=== PATIENT | male | born 1995 | race Asian ===

== ENCOUNTER 2017-07-03 11:20 | Emergency (ER) | payer OTHER ==
[2017-07-03 12:38] VITALS: BP 131/59
--- NOTE | 2017-07-05 11:03 | ED ---
Fletcher Michaels Stephanie, scribed for Efrem Raymond MD on 07/03/17 at 1206 . Abdominal Pain/Male - HPI Summary HPI Summary: The pt is a 21 y/o M presenting to the ED with c/o abd pain that began on . The pt reports the abd pain begins when he gets hungry and resolves after eating. He denies V/D and fever. The pt denies current abd pain. - History of Current Complaint Chief Complaint: EDAbdPain Stated Complaint: ABD PAIN Time Seen by Provider: 07/03/17 11:44 Hx Obtained From: Patient Onset/Duration: Gradual Onset, Lasting Weeks - 4, Still Present - before eating meals Timing: Intermittent Severity Currently: None Pain Intensity: 1 Pain Scale Used: 0-10 Numeric Location: Diffuse Radiates: No Aggravating Factor(s): Other: - hunger Alleviating Factor(s): Other: - foods Associated Signs And Symptoms: Negative: Vomiting, Diarrhea PMH/Surg Hx/FS Hx/Imm Hx Previously Healthy: Yes - The pt denies past medical hx. Sensory History: Denies: Hx Legally Blind EENT History: Denies: Hx Deafness - Surgical History Surgery Procedure, Year, and Place: None Infectious Disease History: No Infectious Disease History: Denies: Traveled Outside the [place] in Last 30 Days - Family History Known Family History: Positive: Other - stomach cancer - Social History Occupation: Student Lives: Dormitory/Roommates Alcohol Use: Rare Hx Substance Use: No Review of Systems Negative: Fever, Chills Negative: Erythema Negative: Sore Throat Negative: Chest Pain Negative: Shortness Of Breath, Cough Positive: Abdominal Pain. Negative: Vomiting, Diarrhea, Nausea Negative: dysuria, hematuria Negative: Myalgia, Edema Negative: Rash Psychological: Other - Negative: dizziness All Other Systems Reviewed And Are Negative: Yes Physical Exam - Summary Physical Exam Summary: Constitutional: Well-developed, Well-nourished, Alert. (-) Distressed Skin: Warm, Dry HENT: Normocephalic; Atraumatic Eyes: Conjunctiva normal Neck: Musculoskeletal ROM normal neck. (-) JVD, (-) Stridor, (-) Tracheal deviation Cardio: Rhythm regular, rate normal, Heart sounds normal; Intact distal pulses; The pedal pulses are 2+ and symmetric. Radial pulses are 2+ and symmetric. (-) Murmur Pulmonary/Chest wall: Effort normal. (-) Respiratory distress, (-) Wheezes, (-) Rales Abd: Soft, (-) Tenderness, (-) Distension, (-) Guarding, (-) Rebound Musculoskeletal: (-) Edema Lymph: (-) Cervical adenopathy Neuro: Alert, Oriented x3 Psych: Mood and affect Normal Triage Information Reviewed: Yes Vital Signs On Initial Exam: Initial Vitals Temp Pulse Resp BP Pulse Ox 98.4 F 77 15 137/71 99 07/03/17 11:22 07/03/17 11:22 07/03/17 11:22 07/03/17 11:22 07/03/17 11:22 Vital Signs Reviewed: Yes Diagnostics - Vital Signs Vital Signs Temp Pulse Resp BP Pulse Ox 07/03/17 11:22 98.4 F 77 15 137/71 99 - Laboratory Lab Statement: Any lab studies that have been ordered have been reviewed, and results considered in the medical decision making process. Abdominal Pain Fem Course/Dx - Course Course Of Treatment: The pt is a 21 y/o M presenting to the ED with abd pain. The pt will be discharged home and is advised to follow up with [facility] in 3-5 days. - Diagnoses Provider Diagnoses: Abdominal pain Discharge - Discharge Plan Condition: Stable Disposition: HOME Prescriptions: Omeprazole CAP* [Prilosec CAP* 20 MG] 20 mg PO DAILY #14 cap. Patient Education Materials: Abdominal Pain (ED) Referrals: [facility] - Luis AREVALO [Primary Care Provider] - 3 Days Additional Instructions: RETURN TO THE EMERGENCY DEPARTMENT FOR CHANGING OR WORSENING SYMPTOMS The documentation as recorded by the Fletcher galan Stephanie accurately reflects the service I personally performed and the decisions made by , Efrem Raymond MD.
== END 2017-07-03 12:10 | disposition home or self-care (01) ==
LOC: ED 11:20
DX: R10.9 Unspecified abdominal pain (principal)
CPT/HCPCS: 99282

== ENCOUNTER 2017-07-04 21:41 | Emergency (ER) | payer OTHER ==
--- NOTE | 2017-07-05 01:07 | ED ---
Influenza-Like Illness - HPI Summary HPI Summary: 21M presents with fever today. He states he is concerned that he flu. He states he took some kind of cold medication and does not have a fever now. He denies any muscle aches. He gets occasional shortness of breath and occasional headache. He denies any nausea or vomiting or diarrhea. He states he has been having abdominal pain for the past month and was recently told that he has GERD. He denies any chest pain or shortness of breath. He is concerned because rest [facility] has the flu. He has no medical conditions. - History of Current Complaint Chief Complaint: EDFluSymptoms Time Seen by Provider: 07/05/17 00:55 - Allergy/Home Medications Allergies/Adverse Reactions: Allergies Allergy/AdvReac Type Severity Reaction Status Date / Time No Known Allergies Allergy Verified 07/04/17 22:08 PMH/Surg Hx/FS Hx/Imm Hx Endocrine/Hematology History: Denies: Hx Anticoagulant Therapy Cardiovascular History: Denies: Hx Hypertension Infectious Disease History: No Infectious Disease History: Denies: Traveled Outside the [place] in Last 30 Days - Family History Known Family History: Negative: Respiratory Disease - Social History Alcohol Use: Rare Substance Use Type: Reports: None Smoking Status (MU): Never Smoked Tobacco Review of Systems Positive: Fever Negative: Chest Pain Positive: Cough. Negative: Shortness Of Breath Negative: Vomiting, Nausea All Other Systems Reviewed And Are Negative: Yes Physical Exam Triage Information Reviewed: Yes Vital Signs On Initial Exam: Initial Vitals Temp Pulse Resp BP Pulse Ox 99.2 F 93 18 132/83 97 07/04/17 22:01 07/04/17 22:01 07/04/17 22:01 07/04/17 22:01 07/04/17 22:01 Vital Signs Reviewed: Yes Appearance: Positive: Well-Appearing Skin: Positive: Warm, Dry Head/Face: Positive: Normal Head/Face Inspection Eyes: Positive: Normal, EOMI, BRANDIE, Conjunctiva Clear ENT: Positive: Normal ENT inspection, Pharynx normal, TMs normal Neck: Positive: Supple, Nontender, No Lymphadenopathy Respiratory/Lung Sounds: Positive: Clear to Auscultation, Breath Sounds Present Cardiovascular: Positive: Normal, RRR Abdomen Description: Positive: Nontender, Soft Bowel Sounds: Positive: Present Musculoskeletal: Positive: Normal Neurological: Positive: Normal Psychiatric: Positive: Normal Diagnostics - Vital Signs Vital Signs Temp Pulse Resp BP Pulse Ox 07/05/17 00:39 99.0 F 91 12 131/75 98 07/04/17 22:01 99.2 F 93 18 132/83 97 - Laboratory Lab Statement: Any lab studies that have been ordered have been reviewed, and results considered in the medical decision making process. Flu Symptom Course/Dx - Course Course Of Treatment: 21M presents with fever today. He states he is concerned that he flu. He states he took some kind of cold medication and does not have a fever now. He denies any muscle aches. He gets occasional shortness of breath and occasional headache. He denies any nausea or vomiting or diarrhea. He states he has been having abdominal pain for the past month and was recently told that he has GERD. He denies any chest pain or shortness of breath. He is concerned because rest of [place] has the flu. He has no medical conditions. On exam lungs clear to auscultation. Abdomen soft nontender. Flu b pos. Will treat with tamiflu. Patient understands and agrees with plan. - Diagnoses Differential Diagnosis/HQI/PQRI: Positive: Influenza, Pneumonia, Upper Respiratory Infection Provider Diagnoses: Influenza B Discharge - Discharge Plan Condition: Good Disposition: HOME Prescriptions: Oseltamivir CAP* [Tamiflu CAP*] 75 mg PO BID #9 cap Patient Education Materials: Influenza (ED) Referrals: [facility] - Luis AREVALO [Primary Care Provider] - Additional Instructions: Take Tamiflu twice for 5 days first dose given in ED Take Tylenol and ibuprofen for muscle aches and fever every 6 hours Saline rinse can be used multiple times a day for nasal congestion Use humidifier in room or place bowls of warm water around room for cough Try to drink fluids every hour and eat a small snack every 3 hours Follow up with primary within 5 days Return to ED if develop any new or worsening symptoms
[2017-07-05 01:09] VITALS: BP 139/64
[2017-07-05] MEDS ORDERED: Oseltamivir CAP* 75 MG CAP PO ONE (01:12)
== END 2017-07-05 01:22 | disposition home or self-care (01) ==
LOC: ED 21:41
DX: J10.1 Influenza due to other identified influenza virus with other respiratory manifestations (principal)
CPT/HCPCS: 87502; 99282; A9270-GY